=== PATIENT | male | born 1980 | race Caucasian/White ===

== ENCOUNTER 2020-02-19 22:51 | Emergency (ER) | payer SELFPAY ==
[~2020-02-19] VITALS: Ht 180.3 cm; Wt 99.8 kg
--- OUTSIDE RECORDS SUMMARY | 2020-02-19 22:53 | XMS REPORT | Clinical Summary ---
Author Author [facility] Organization [facility] Address Unknown Phone Unavailable Care Team Providers Care Podiatry Doctor Name Role Phone Asked, No Pcp PCP Unavailable Allergies No Known Allergies Medications End Date Status Medication Sig Dispensed Refills Start Date Active acetaminophen (TYLENOL) Take 2 1 Bottle 0 325 MG tablet tablets (650 9 mg total) by mouth every 4 (four) hours as needed for moderate pain for up to 30 doses. 06/03/2019 acetaminophen-codeine Take 1-2 20 tablet 0 05/12 (TYLENOL WITH CODEINE #3) tablets by 9 300-30 mg per mouth every 6 tabletIndications: acute (six) hours pain as needed for moderate pain for up to 5 days .Acute Pain. 06/01/2019 ondansetron ODT (ZOFRAN Take 1 tablet 12 tablet 0 ODT) 8 MG disintegrating (8 mg total) 9 tablet by mouth every 8 (eight) hours as needed for nausea or vomiting for up to 3 days. Active Problems Problem Noted Date Ureteral stone with hydronephrosis 12/21/2018 Encounters Care Team Description Date Type Specialty Keaton, Adam Wright Jr., MD Flank pain (Primary Dx); Ureterolithiasis; Chest pain, unspecified type 05/29/2019 Emergency Emergency Medicine after 02/18/2019 Social History Date Tobacco Use Types Packs/Day Years Used Current Every Day Smoker Cigarettes 0.25 Smokeless Tobacco: Never Used Drinks/Week oz/Week Comments Alcohol Use Quit in 2003 No Sex Assigned at Date Recorded Not on file Industry Job Start Date Occupation Not on file Not on file Not on file Travel End Travel History Travel Start No recent travel history available. Last Filed Vital Signs Reading Time Taken Comments Vital Sign 130/88 05/29/2019 7:17 PM CDT Blood Pressure 58 05/29/2019 7:17 PM CDT Pulse 36.8 C (98.2 F) 05/29/2019 7:17 PM CDT Temperature 20 05/29/2019 7:17 PM CDT Respiratory Rate 99% 05/29/2019 7:17 PM CDT Oxygen Saturation - - Inhaled Oxygen Concentration 99.8 kg (220 lb) 05/29/2019 2:30 PM CDT Weight 180.3 cm (5' 11") 05/29/2019 2:30 PM CDT Height 30.68 05/29/2019 2:30 PM CDT Body Mass Index Plan of Treatment Health Maintenance Due Date Last Done Comments INFLUENZA VACCINE 04/11/2020 Procedures Comments Procedure Name Priority Date/Time Associated Diag nosis URINALYSIS SCREEN AND Routine 05/29/2019 MICROSCOPY, WITH REFLEX 6:14 PM CDT TO CULTURE URINE CULTURE Routine 05/29/2019 6:14 PM CDT TROPONIN Timed 05/29/2019 5:20 PM CDT ESTIMATED GFR STAT 05/29/2019 3:35 PM CDT TROPONIN STAT 05/29/2019 3:35 PM CDT LIPASE LEVEL STAT 05/29/2019 3:35 PM CDT PARTIAL THROMBOPLASTIN STAT 05/29/2019 TIME (PTT) 3:35 PM CDT PROTHROMBIN TIME WITH INR STAT 05/29/2019 3:35 PM CDT HC COMPLETE BLD COUNT STAT 05/29/2019 W/AUTO DIFF 3:35 PM CDT COMPREHENSIVE METABOLIC STAT 05/29/2019 PANEL 3:[address] RENAL STONE PROTOCOL STAT 05/29/2019 3:23 PM CDT ECG ED PRELIMINARY Routine 05/29/2019 INTERPRETATION 2:36 PM CDT ECG 12-LEAD STAT 05/29/2019 2:22 PM CDT after 02/18/2019 Results * Urinalysis screen and microscopy, with reflex to culture (05/29/2019 6:14 PM CDT) Specimen site Clean catch [facility] Color, UA Straw [facility] Appearance, UA Clear [facility] Specific 1.014 1.001 - 1.035 [facility] gravity, UA [facility] pH, UA 6.0 5.0 - 8.5 [facility] Protein, UA Negative Negative [facility] Glucose, UA Negative Negative [facility] Ketones, UA Negative Negative [facility] Bilirubin, UA Negative Negative [facility] Blood, UA Small (A) Negative [facility] Nitrite, UA Negative Negative [facility] Urobilinogen, Negative <2.0 [facility] Leukocyte Negative Negative [facility] esterase, [facility] WBC, UA 1 0 - 1 /HPF [facility] RBC, UA 5 (A) 0 - 5 /HPF [facility] Bacteria, UA None seen None seen [facility] Yeast, UA None seen [facility] Yeast with None seen [facility] Specimen Urine Performing Organization Address City/[facility] Ph one Number [facility] DEPARTMENT OF [facility] [place] [address] PATHOLOGY AND GENOMIC MEDICINE [address] * Urine culture (05/29/2019 6:14 PM CDT) Urine culture SEE COMMENTComment: [facility] Bacteriuria screen negative. [facility] Specimen Urine Performing Organization Address City/[facility] Ph one Number [facility] DEPARTMENT OF [address] [place] [address] [place] [address] PATHOLOGY AND GENOMIC MEDICINE [address] [place] [address] HOSPITAL * Troponin (05/29/2019 5:20 PM CDT) Only the most recent of 2 results within the time period is included. Troponin <0.006 0.000 - 0.040 ng/mL [facility] Comment: ZOROASTRIANISM [facility] changed methodology effective: HOSPITAL 01/15/2019 at 10:00 am The new method has a 99th percentile cutoff of 0.040 ng/mL Specimen Plasma specimen Performing Organization Address City/[facility] Ph one Number [facility] [place] [address] [place] [address] PATHOLOGY AND GENOMIC MEDICINE [address] * Estimated GFR (05/29/2019 3:35 PM CDT) [facility] Estimated GFR 85 mL/min/1.73 m2 [facility] Comment: [facility]OASTRIANISM [facility] Interpretation HOSPITAL G1 >=90 Normal or high G2 60-89 Mildly decreased G3a 45-59 Mildly to moderately decreased G3b 30-44 Moderately to severely decreased G4 15-29 Severely decreased G5 <15 Kidney failure The eGFR was calculated using the Chronic Kidney Disease Epidemiology Collaboration (CKD-EPI) equation. Interpretation is based on recommendations of the National Kidney Foundation-Kidney Disease Outcomes Quality Initiative (NKF-KDOQI) published in 2014. Specimen Plasma specimen Performing Organization Address [facility] Ph one Number [facility] [place] [address] [place] [address] [place] [address] PATHOLOGY AND [facility] MEDICINE [address] * Partial thromboplastin time, activated (05/29/2019 3:35 PM CDT) [facility] PTT 37.1 (H) 23.0 - 36.0 sec [facility] Comment: ZOROASTRIANISM PTT therapeutic range for [facility] unfractionated heparin is HOSPITAL 61.0-112.0 seconds which corresponds to Anti-Xa 0.3-0.7 U/ml. Specimen Blood Performing Organization Address City/[facility] Ph one Number [facility] DEPARTMENT OF [address] [facility] [place] [address] PATHOLOGY AND GENOMIC MEDICINE [facility] [address] * Prothrombin time with INR (05/29/2019 3:35 PM CDT) Prothrombin 12.7 11.5 - 14.5 sec [facility] INR 0.98 [facility] Comment: ZOROASTRIANISM [facility] patients [facility] therapy, reference ranges HOSPITAL below: Indication: INR Value Treatment of Venous Thrombosis, 2.0-3.0 pulmonary emboli, or prophylaxis of a venous thrombosis, or systemic emboli. High dose, high risk patients 3.0-4.5 with mechanical valves. NOTE: INR values over 3.0 are sometimes associated with gastrointestinal hemorrhage, especially values over 4.0. Specimen Blood Performing Organization Address City/State/Zipcode Ph one Number [facility] DEPARTMENT OF [address] [place] [address] PATHOLOGY AND GENOMIC MEDICINE [facility] [address] * CBC with platelet and differential (05/29/2019 3:35 PM CDT) WBC 6.0 4.2 - 11.0 k/uL [facility] RBC 4.59 4.04 - 5.86 m/uL [facility] HGB 13.4 13.0 - 17.3 g/dL [facility] HCT 40.5 34.0 - 45.0 % [facility] MCV 88.2 80.0 - 98.0 fL [facility] MCH 29.2 27.0 - 34.0 pg [facility] MCHC 33.1 31.5 - 36.5 g/dL [facility] RDW - SD 43.8 37.0 - 51.0 fL [facility] MPV 9.9 7.4 - 10.4 fL [facility] Platelet count 301 150 - 400 k/uL [facility] Nucleated RBC 0.00 /100 WBC [facility] Neutrophils 56.3 36.0 - 66.0 % [facility] Lymphocytes 29.2 24.0 - 44.0 % [facility] Monocytes 9.4 (H) 0.0 - 6.0 % [facility] Eosinophils 3.4 0.0 - 6.0 % [facility] Basophils 1.0 0.0 - 1.2 % [facility] Immature 0.7 0.0 - 1.0 % [facility] granulocytes [facility] Specimen Blood Performing Organization Address City/State[facility] Ph one Number [facility] DEPARTMENT OF [address] [place] [address] PATHOLOGY AND GENOMIC MEDICINE [facility] [address] * Lipase level (05/29/2019 3:35 PM CDT) Pathologist [facility] Lipase 52 13 - 60 U/L [facility] Specimen Plasma specimen Performing Organization Address City/State[facility] Ph one Number [facility] DEPARTMENT OF [address] [place] [address] PATHOLOGY AND GENOMIC MEDICINE [facility] [address] * Comprehensive metabolic panel (05/29/2019 3:35 PM CDT) [facility] Sodium 142 135 - 150 mEq/L [facility] Potassium 3.8 3.5 - 5.0 mEq/L [facility] Chloride 106 98 - 112 mEq/L [facility] CO2 24 24 - 31 mmol/L [facility] Anion gap 12@ANIO 7 - 15 mEq/L [facility] BUN 20 (H) 7 - 18 mg/dL [facility] Creatinine 1.10 0.70 - 1.20 mg/dL [facility] Glucose 87 65 - 100 mg/dL [facility] Calcium 9.6 8.3 - 10.2 mg/dL [facility] Protein 7.4 6.3 - 8.3 g/dL [facility] Albumin 4.1 3.5 - 5.0 g/dL [facility] A/G ratio 1.2 0.7 - 3.8 [facility] Alkaline 136 (H) 0 - 129 U/L [facility] phosphatase [facility] AST 19 10 - 50 U/L [facility] ALT 26 5 - 50 U/L [facility] Total bilirubin <0.3 0.2 - 1.2 mg/dL [facility] Specimen Plasma specimen Performing Organization Address City/State/Zipcode Ph one Number [facility] DEPARTMENT OF [address] [place] [address] PATHOLOGY AND GENOMIC MEDICINE [facility] [address] * CT Renal Stone Protocol (05/29/2019 3:23 PM CDT) Specimen Narrative Performed At EXAMINATION: CT RENAL STONE PROTOCOL RADIANT CLINICAL HISTORY: Flank pain stone disease suspected, LLQ pain and L flank pain TECHNIQUE: Multiple axial images of the abdomen were obtained without intravenous contrast with thin sections per renal stone protocol. Sagittal and coronal computerized reformatted images were also obtained. All CT images were acquired using radiation dose lowering technique with automated exposure control and / or iterative reconstruction. COMPARISON: CT abdomen pelvis 12/22/19 19 IMPRESSION: ABDOMEN Evaluation of solid abdominal organs is limited without IV contrast as this examination was tailored for evaluation of urinary tract calculi. 1.Mild left hydroureteronephrosis and m inimal stranding, less pronounced than prior. No obstructing stone is identifi ed. Bilateral nonobstructive nephrolithiasis is present, and the fin dings likely represent a recently passed stone, though ascending bladder infection is another possibilit y (felt less likely). No obstructive uropathy on the right. 2.Calcified splenic granulomata. 3.No other incidental findings are dete cted PELVIS 1.Circumaortic left renal vein anatomic variant. 2.Mild midline abdominal wall diastasis . 3.No free fluid or definite lymphadenop athy detected in the abdomen or pelvis on this limited noncontrast study. 4.Urinary bladder collapsed otherwise g rossly unremarkable. Prostate gland seminal vesicles grossly unremarkable. 5.Bowel loops grossly unremarkable with out enteric contrast. Bone island in the lower thoracic spine. Visualized bones show no suspicious lesion. SUMMARY: Mild left hydroureteronephrosis likely due to a recently passed stone. Incidental findings as above. [id number] Procedure Note Hm Interface, Radiology Results Incoming - 05/29/2019 3:40 PM CDT EXAMINATION: CT RENAL STONE PROTOCOL CLINICAL HISTORY: Flank pain stone disease suspected, LLQ pain and L flank pain TECHNIQUE: Multiple axial images of the abdomen were obtained without intravenous contrast with thin sections per renal stone protocol. Sagittal and coronal computerized reformatted images were also obtained. All CT images were acquired using radiation dose lowering technique with automated exposure control and / or iterative reconstruction. COMPARISON: CT abdomen pelvis 12/21/2018 IMPRESSION: ABDOMEN Evaluation of solid abdominal organs is limited without IV contrast as this examination was tailored for evaluation of urinary tract calculi. 1.Mild left hydroureteronephrosis and mi nimal stranding, less pronounced than prior. No obstructing stone is identified. Bilateral nonobstructive nephrolithiasis is present, and the findings likely represent a recently passed stone, though ascending bladder infection is another possibility (felt less likely). No obstructive uropathy on the right. 2.Calcified splenic granulomata. 3.No other incidental findings are detec bernabe PELVIS 1.Circumaortic left renal vein anatomic variant. 2.Mild midline abdominal wall diastasis. 3.No free fluid or definite lymphadenopa thy detected in the abdomen or pelvis on this limited noncontrast study. 4.Urinary bladder collapsed otherwise gr ossly unremarkable. Prostate gland seminal vesicles grossly unremarkable. 5.Bowel loops grossly unremarkable witho ut enteric contrast. Bone island in the lower thoracic spine. Visualized bones show no suspicious lesion. SUMMARY: Mild left hydroureteronephrosis likely due to a recently passed stone. Incidental findings as above. [id number] Performing Organization Address City/State/[facility] Ph one Number [facility] [address] [place] [address] * ECG ED Preliminary Interpretation - Not an Order (05/29/2019 2:36 PM CDT) Narrative Performed At Adam Pugh Jr., MD 2018 8:44 AM ECG ED Preliminary Interpretation - Not an Order Performed by: Adam Pugh Jr., MD Authorized by: Adam Pugh Jr., MD ECG reviewed by ED Physician in the abs ence of a academic support specialist: yes Interpretation: Interpretation: normal Quality: Tracing quality: Limited by artifac t Rate: ECG rate: 70 ECG rate assessment: normal Rhythm: Rhythm: sinus rhythm QRS: QRS axis: Normal QRS intervals: Normal ST segments: ST segments: Normal * ECG 12 lead (05/29/2019 2:22 PM CDT) Ventricular 70 [facility] rate Atrial rate 70 [facility] DE interval 118 [facility] QRSD interval 82 [facility] QT interval 424 [facility] QTC interval 457 [facility] P axis 1 25 [facility] QRS axis 1 56 [facility] T wave axis 44 [facility] EKG impression Normal sinus rhythm-Normal [facility] ECG-In automated comparison with ECG of 04-DEC-2011 17:15,-Nonspecific T wave abnormality no longer evident in Anterior leads- Specimen Narrative Performed At This result has an attachment that is n ot available. 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
--- OUTSIDE RECORDS SUMMARY | 2020-02-19 22:53 | XMS REPORT | Continuity of Care Document ---
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 Name Role Phone [employer] Unavailable Un available Problems Problem Status Onset Date Classification Date Reported Comments Source Calculus of ureter 12/19/2018 12/22/2018 [facility] Left lower quadrant pain 12/19/2018 12/22/2018 [facility] Unspecified abdominal pain 12/19/2018 12/22/2018 [facility] FLANK PAIN Active 12/19/2018 [facility] ABD PAIN Active 12/18/2018 [facility] Unspecified convulsions 01/24/2017 01/27/2017 [facility] SEIZURE Active 01/24/2017 [facility] Seizure (finding) Active Problem 12/22/2018 [facility] Medications Medication Details Route Status Patient Instructions Ordering Provider Order Date Source Morphine Notes: (Same as:MORPh ine Sulfate) Inactive 12/19/2018 [facility] NS (Bolus) IV 1,000 mL, 1,000 ml/hr, Infuse Over: 1 hr, Route: IV, 1,000, Drug form: INJ, ONCE, Priority: STAT, Dosing Weight 100.909 kg, Start date: 12/19/18 8:37:00 CDT, Stop date: 12/19/18 8:37:00 CDT Inactive 12/19/2018 [facility] Morphine Notes: (Same as:MORPh ine Sulfate) Inactive 12/19/2018 [facility] Zofran Notes: (Same as: Zofran ) MEDICATION WASTE Product Size: 4 mg Product Wasted: ___ mg Inactive 12/19/2018 [facility] Ibuprofen Notes: (Same as: Mot rin) "Do Not Crush" Take with food. Inactive 12/19/2018 [facility] Acetaminophen 325 MG / Hydrocodone Kavya trate 5 MG Oral Tablet [Yulee 5/325] Notes: (Same as: Yulee 325/5) Do not ex ceed 4gm/day of acetaminophen. Inactive 12/19/2018 [facility] Ondansetron 4 MG Disintegrating Tablet [Zofran] 4 mg = 1 tab, PO, Q8H, PRN Nausea and Vomiting, Dissolve tab under tongue, # 30 tab, 0 Refill(s) Active 12/19/2018 [facility] Tamsulosin hydrochloride 0.4 MG Oral Capsule [Flomax] 0.4 mg = 1 cap, PO, Daily, # 30 cap, 0 Refill(s) Active 12/19/2018 [facility] Acetaminophen 300 MG / Codeine Phosphate 30 MG Oral Tablet [Tylenol with Codeine #3] 1 tab, PO, Q6H, PRN Pain, X 10 day, # 30 tab, 0 Refill(s) Active 12/19/2018 [facility] Acetaminophen 325 MG / Hydrocodone Kavya trate 10 MG Oral Tablet [Yulee 10/325] 1 tab, Route: PO, Drug Form: TAB, Dosing Weight 101.045, kg, ONCE, STAT, Start date: 12/18/18 22:43:00 CDT, Stop date: 12/18/18 22:43:00 CDT Inactive 12/19/2018 [facility] Sodium Chloride 0.9% (Bolus) IV 1,000 mL, 1,000 ml/hr, Infuse Over: 1 hr, Route: IV, ONCE, Priority: STAT, Dosing Weight 101.045 kg, Start date: 12/18/18 21:29:00 CDT, Stop date: 12/18/18 21:29:00 CDT Inactive 12/19/2018 [facility] Ketorolac 30 mg, Route: IVP, D rug form: INJ, ONCE, Dosing Weight 101.045, kg, Priority: STAT, Start date: 12/18/18 21:25:00 CDT, Stop date: 12/18/18 21:25:00 CDT Inactive 12/19/2018 [facility] Ondansetron Notes: (Same as: [place] l[place]) MEDICATION WASTE Product Size: 4 mg Product Wasted: ___ mg Inactive 12/19/2018 [facility] Morphine Notes: (Same as:MORPh ine Sulfate) Inactive 12/19/2018 [facility] Saline Flush 0.9% Notes: (Same as: BD Posiflush) No Longer Active 12/19/2018 [facility] Divalproex Sodium 250 MG Enteric Coated Tablet [Depakote] 250 mg = 1 tab, PO, TID, # 90 tab, 0 Refill(s) Active 01/25/2017 [facility] Naproxen 500 MG Oral Tablet [Naprosyn] 500 mg = 1 tab, PO, BID, PRN Pain, # 20 tab, 0 Refill(s) No Longer Active 01/25/2017 [facility] Keppra Notes: Same as Keppra Mix with 100 mL NS, LR or D5W MEDICATION WASTE Product Size: 500 mg Product Wasted: ___ mg Inactive 01/25/2017 [facility] Saline Flush 0.9% Notes: (Same as: BD Posiflush) No Longer Active 01/25/2017 [facility] Allergies, Adverse Reactions, Alerts No Known Medication Allergies Immunizations Immunization Date Given Site Status Last Updated Comments Source tetanus-diphtheria toxoids Right Deltoid completed [facility] Results Order Name Results Value Reference Range Date Interpretation Comments Source URINE AND STOOL UA Sq Epi None Seen (12/18/18 10:07 PM) Few 12/19/2018 [facility] URINE AND STOOL UA RBC 1 0 - 2 12/19/2018 [facility] URINE AND STOOL UA Blood Negative (12/18/18 10:07 PM) Negative 12/19/2018 [facility] URINE AND STOOL UA Leuk Est Negative (12/18/18 10:07 PM) Negative 12/19/2018 [facility] URINE AND STOOL UA Urobilinogen <=1.0 mg/dL 0.1 - 1.0 12/19/2018 [facility] URINE AND STOOL UA Nitrite Negative (12/18/18 10:07 PM) Negative 12/19/2018 [facility] URINE AND STOOL UA Bili Negative *NA* (12/18/18 10:07 PM) Negative 12/19/2018 [facility] URINE AND STOOL UA WBC <1 0 - 5 12/19/2018 [facility] URINE AND STOOL UA Ketones Negative *NA* (12/18/18 10:07 PM) Negative 12/19/2018 [facility] URINE AND STOOL UA Mucus Few /LPF None Seen /LPF 12/19/2018 [facility] URINE AND STOOL UA Protein Negative (12/18/18 10:07 PM) Negative 12/19/2018 [facility] URINE AND STOOL UA pH 8.0 5.0 - 8.0 12/19/2018 [facility] URINE AND STOOL UA Glucose Negative *NA* (12/18/18 10:07 PM) Negative 12/19/2018 [facility] URINE AND STOOL UA Color STRAW 12/19/2018 [facility] URINE AND STOOL UA Turbidity Clear (12/18/18 10:07 PM) Clear 12/19/2018 [facility] URINE AND STOOL UA Spec Grav 1.011 <=1.030 12/19/2018 [facility] CARDIAC ENZYMES Troponin-I <0.02 0.00 - 0.40 12/19/2018 [facility] CHEM PANEL Lipase Lvl 109 73 - 393 12/19/2018 [facility] CHEM PANEL eGFR 81 12/19/2018 Result Comment: The eGFR is calculated using the CKD-EPI formula. In most young, healthy individuals the eGFR will be >90 mL/min/1.73m2. The eGFR declines with age. An eGFR of 60-89 may be normal in some populations, particularly the elderly, for whom the CKD-EPI formula has not been extensively validated. Use of the eGFR is not recommended in the following populations:

Individuals with unstable creatinine concentrations, including patients and those with serious co-morbid conditions.

Patients with extremes in muscle mass or diet.

The data above are obtained from the National Kidney Disease Education Program (NKDEP) which additionally recommends that when the eGFR is used in patients with extremes of body mass index for purposes of drug dosing, the eGFR should be multiplied by the estimated BMI. [facility] CHEM PANEL AST 18 0 - 37 12/19/2018 [facility] CHEM PANEL Alk Phos 112 39 - 136 12/19/2018 [facility] CHEM PANEL ALT 56 0 - 65 12/19/2018 [facility] CHEM PANEL Albumin Lvl 3.6 3.5 - 5.0 12/19/2018 [facility] CHEM PANEL Chloride Lvl 103 95 - 109 12/19/2018 [facility] CHEM PANEL Total Protein 6.9 6.4 - 8.4 12/19/2018 [facility] CHEM PANEL Calcium Lvl 8.8 8.5 - 10.5 12/19/2018 [facility] CHEM PANEL CO2 25 24 - 32 12/19/2018 [facility] CHEM PANEL Bili Total 0.2 0.2 - 1.3 12/19/2018 [facility] CHEM PANEL Glucose Lvl 151 70 - 99 12/19/2018 [facility] CHEM PANEL Potassium Lvl 4.1 3.5 - 5.1 12/19/2018 [facility] CHEM PANEL Sodium Lvl 134 135 - 145 12/19/2018 [facility] CHEM PANEL Creatinine Lvl 1.15 0.50 - 1.40 12/19/2018 [facility] CHEM PANEL BUN 17 7 - 22 12/19/2018 [facility] CHEM PANEL AGAP 10.1 10.0 - 20.0 12/19/2018 [facility] CHEM PANEL A/G Ratio 1.1 0.7 - 1.6 12/19/2018 [facility] CHEM PANEL B/C Ratio 15 6 - 25 12/19/2018 [facility] CHEM PANEL Globulin 3.3 2.7 - 4.2 12/19/2018 [facility] HEMATOLOGY Hct 40.7 42.0 - 54.0 12/19/2018 [facility] HEMATOLOGY Hgb 13.8 14.0 - 18.0 12/19/2018 [facility] HEMATOLOGY WBC 7.5 3.7 - 10.4 12/19/2018 [facility] HEMATOLOGY RBC 4.63 4.70 - 6.10 12/19/2018 [facility] HEMATOLOGY RDW 14.2 11.5 - 14.5 12/19/2018 [facility] HEMATOLOGY Platelet 287 133 - 450 12/19/2018 [facility] HEMATOLOGY MPV 8.1 7.4 - 10.4 12/19/2018 [facility] HEMATOLOGY MCV 87.9 80.0 - 94.0 12/19/2018 [facility] HEMATOLOGY MCH 29.9 27.0 - 31.0 12/19/2018 [facility] HEMATOLOGY MCHC 34.0 32.0 - 36.0 12/19/2018 [facility] HEMATOLOGY Segs 59.7 45.0 - 75.0 12/19/2018 [facility] HEMATOLOGY Lymphocytes 28.5 20.0 - 40.0 12/19/2018 [facility] HEMATOLOGY Monocytes 7.6 2.0 - 12.0 12/19/2018 [facility] HEMATOLOGY Eosinophils 2.8 0.0 - 4.0 12/19/2018 [facility] HEMATOLOGY Monocytes # 0.6 0.0 - 0.8 12/19/2018 [facility] HEMATOLOGY Eosinophils # 0.2 0.0 - 0.5 12/19/2018 [facility] HEMATOLOGY Lymphocytes # 2.1 1.0 - 5.5 12/19/2018 [facility] HEMATOLOGY Basophils # 0.1 0.0 - 0.2 12/19/2018 [facility] HEMATOLOGY Basophils 1.4 0.0 - 1.0 12/19/2018 [facility] HEMATOLOGY Neutrophils # 4.5 1.5 - 8.1 12/19/2018 [facility] URINE AND STOOL UA Urobilinogen <=1.0 mg/dL 0.1 - 1.0 01/25/[address] [facility] [address] URINE AND STOOL UA WBC 2 0 - 5 01/25/2017 [facility] URINE AND STOOL UA RBC 4 0 - 2 01/25/2017 [facility] URINE AND STOOL UA Ketones Negative mg/dL Negative mg/dL 01/25/[address] [facility] [address] URINE AND STOOL UA Nitrite Negative (01/24/17 10:35 PM) Negative 01/25/2017 [facility] URINE AND STOOL UA Bili Negative *NA* (01/24/17 10:35 PM) Negative 01/25/2017 [facility] URINE AND STOOL UA Color Light Yellow *NA* (01/24/17 10:35 PM) Yellow 01/25/2017 [facility] URINE AND STOOL UA pH 5.0 5.0 - 8.0 01/25/2017 [facility] URINE AND STOOL UA Turbidity Clear (01/24/17 10:35 PM) Clear 01/25/2017 [facility] URINE AND STOOL UA Protein Negative mg/dL Negative mg/dL 01/25/2017 [facility] URINE AND STOOL UA Spec Grav 1.020 <=1.030 01/25/2017 [facility] URINE AND STOOL UA Leuk Est Negative (01/24/17 10:35 PM) Negative 01/25/2017 [facility] URINE AND STOOL UA Mucus Few /LPF None Seen /LPF 01/25/2017 [facility] URINE AND STOOL UA Sq Epi None Seen 01/25/2017 [facility] URINE AND STOOL UA Glucose Negative mg/dL Negative mg/dL 01/25/2017 [facility] URINE AND STOOL UA Blood Negative (01/24/17 10:35 PM) Negative 01/25/2017 [facility] CARDIAC ENZYMES Troponin-I <0.02 0.00 - 0.40 01/25/2017 [facility] CARDIAC ENZYMES CK MB 1.0 0.5 - 3.6 01/25/2017 [facility] CHEM PANEL A/G Ratio 1.2 0.7 - 1.6 01/25/2017 [facility] CHEM PANEL AGAP 12.6 10.0 - 20.0 01/25/2017 [facility] CHEM PANEL B/C Ratio 19 6 - 25 01/25/2017 [facility] CHEM PANEL Globulin 3.0 2.7 - 4.2 01/25/2017 [facility] CHEM PANEL eGFR 94 01/25/2017 Result Comment: The eGFR is calculated using the CKD-EPI formula. In most young, healthy individuals the eGFR will be >90 mL/min/1.73m2. The eGFR declines with age. An eGFR of 60-89 may be normal in some populations, particularly the elderly, for whom the CKD-EPI formula has not been extensively validated. Use of the eGFR is not recommended in the following populations:

Individuals with unstable creatinine concentrations, including patients and those with serious co-morbid conditions.

Patients with extremes in muscle mass or diet.

The data above are obtained from the National Kidney Disease Education Program (NKDEP) which additionally recommends that when the eGFR is used in patients with extremes of body mass index for purposes of drug dosing, the eGFR should be multiplied by the estimated BMI. [facility] CHEM PANEL Total Protein 6.7 6.4 - 8.4 01/25/2017 [facility] CHEM PANEL Calcium Lvl 8.8 8.5 - 10.5 01/25/2017 [facility] CHEM PANEL CO2 23 24 - 32 01/25/2017 [facility] CHEM PANEL Chloride Lvl 109 95 - 109 01/25/2017 [facility] CHEM PANEL Albumin Lvl 3.7 3.5 - 5.0 01/25/2017 [facility] CHEM PANEL Sodium Lvl 141 135 - 145 01/25/2017 [facility] CHEM PANEL Creatinine Lvl 1.03 0.50 - 1.40 01/25/2017 [facility] CHEM PANEL BUN 20 7 - 22 01/25/2017 [facility] CHEM PANEL Glucose Lvl 103 70 - 99 01/25/2017 [facility] CHEM PANEL Potassium Lvl 3.6 3.5 - 5.1 01/25/2017 [facility] CHEM PANEL Alk Phos 75 39 - 136 01/25/2017 [facility] CHEM PANEL AST 20 0 - 37 01/25/2017 [facility] CHEM PANEL ALT 31 0 - 65 01/25/2017 [facility] CHEM PANEL Bili Total 0.1 0.2 - 1.3 01/25/2017 [facility] HEMATOLOGY Lymphocytes # 2.0 1.0 - 5.5 01/25/2017 [facility] HEMATOLOGY Monocytes # 0.5 0.0 - 0.8 01/25/2017 [facility] HEMATOLOGY Basophils # 0.1 0.0 - 0.2 01/25/2017 [facility] HEMATOLOGY Eosinophils # 0.2 0.0 - 0.5 01/25/2017 [facility] HEMATOLOGY Lymphocytes 30.9 20.0 - 40.0 01/25/2017 [facility] HEMATOLOGY Monocytes 7.6 2.0 - 12.0 01/25/2017 [facility] HEMATOLOGY Basophils 0.8 0.0 - 1.0 01/25/2017 [facility] Segs-Bands # 3.7 1.5 - 8.1 01/25/2017 [facility] Eosinophils 3.8 0.0 - 4.0 01/25/2017 [facility] Segs 56.9 45.0 - 75.0 01/25/2017 [facility] PTT 33.1 22.9 - 35.8 01/25/2017 [facility] MPV 9.0 7.4 - 10.4 01/25/2017 [facility] Platelet 249 133 - 450 01/25/2017 [facility] RDW 14.3 11.5 - 14.5 01/25/2017 [facility] WBC 6.4 3.7 - 10.4 01/25/2017 [facility] Hgb 12.4 14.0 - 18.0 01/25/2017 [facility] RBC 4.18 4.70 - 6.10 01/25/2017 [facility] MCH 29.6 27.0 - 31.0 01/25/2017 [facility] MCHC 34.6 32.0 - 36.0 01/25/2017 [facility] MCV 85.4 80.0 - 94.0 01/25/2017 [facility] Hct 35.7 42.0 - 54.0 01/25/2017 [facility] Pathology Reports No Data Provided for This Section Diagnostic Reports Report Value Date Source Renal Stone CT Clinical Indica tion: - left flank pain sudden onset Comparison: None TECHNIQUE: Noncontrasted helical imaging was performed from above the diaphragms through the symphysis as a renal stone protocol. No reformations are available. IV CONTRAST: No IV contrast was administered. GI CONTRAST: No oral contrast was administered. DLP: 794 mGy-cm FINDINGS: LOWER CHEST: The lung bases are clear. LIVER: There are no gross masses or intrahepatic biliary ductal dilatation noted. BILIARY TREE: The common bile duct is normal in caliber without evidence of filling defects. GALLBLADDER: The gallbladder is unremarkable, there is no evidence of cholelithiasis or cholecystitis. PANCREAS: The pancreas is unremarkable. The pancreatic duct is normal in caliber. SPLEEN: The spleen is normal in size and there are no parenchymal abnormalities. ADRENALS: The right adrenal gland is unremarkable. The left adrenal gland is unremarkable. KIDNEYS: There are punctate nonobstructing stones in bilateral renal collecting systems. The left kidney is hydronephrotic with perinephric fat stranding. The left ureter is dilated for its entire length to the bladder, where it is obstructed by a 3 mm stone at the ureterovesicular junction. There is no evidence of right-sided hydronephrosis or hydroureter and no right ureteral calculi are identified. No renal mass is identified. BOWEL: The visualized portion of the esophagus is unremarkable. The stomach is unremarkable. The small bowel is normal in caliber and there is no evidence of masses or obstruction. The colon is normal in caliber. There are no colonic masses. There is no evidence of diverticulosis or diverticulitis. APPENDIX: The appendix is not definitely seen but there is no CT evidence to suggest appendicitis. PELVIS: There are no pelvic mass. The urinary bladder is normal. The prostate and seminal vesicles are unremarkable. PERITONEUM: There is no evidence for free intraperitoneal fluid or air. LYMPH NODES: There is no evidence of mesenteric, retroperitoneal, or inguinal lymphadenopathy. VASCULATURE: The abdominal aorta is normal in caliber. MUSCULOSKELETAL: The visualized bony skeleton is unremarkable. IMPRESSION: 1. 3 mm stone is obstructing the distal left ureter at the ureterovesicular junction. 2. Additional punctate nonobstructing s tones are seen in bilateral renal collecting systems. SL: 82 12/18/2018 [facility] Brain wo contrast CT Clinical Indication: Seizure today multiple times.; Comparison: 08/11/2009 TECHNIQUE: CT images were obtained from the foramen magnum to the vertex without the use of intravenous contrast on a multidetector CT. Coronal and sagittal reconstructions were obtained. CT radiation dose DLP: 1304.48 mGy-cm FINDINGS: BRAIN PARENCHYMA: There are normal lopez-white interfaces, sulci and gyri. There are no focal mass lesions on this noncontrast head CT. There is no mass effect, midline shift or edema. There is extra-axial prominence involving the right middle cranial fossa which is unchanged when compared with the previous exam. There are no intra-axial fluid collections, intraventricular or intraparenchymal hemorrhage. The pineal, sellar, brainstem, cerebellum and skull base regions appear unremarkable. VENTRICLES: The lateral ventricles, third and fourth ventricles appear unremarkable. The basilar cisterns are normal. ORBITS, MASTOIDS AND PARANASAL SINUSES: The visualized orbits and paranasal sinuses are unremarkable. The mastoid air cells are clear. SKULL: There are no osseous abnormalities. If there is further concern for intracranial pathology or acute stroke, MRI of the brain may be performed for complete assessment. IMPRESSION: Unremarkable noncontrast head CT with no mass, hemorrhage or subacute stroke. SL: [id number] 01/24/2017 [facility] Consultation Notes No Data Provided for This Section Discharge Summaries No Data Provided for This Section History and Physicals No Data Provided for This Section Vital Signs Vital Sign Value Date Comments Source Systolic (mm Hg) 122 12/19/2018 [facility] Diastolic (mm Hg) 74 12/19/2018 [facility] Respitory Rate 22 12/19/2018 [facility] Respitory Rate 22 12/19/2018 [facility] Systolic (mm Hg) 133 12/19/2018 [facility] Diastolic (mm Hg) 86 12/19/2018 [facility] Temperature Oral (F) 98.1 F 12/19/2018 [facility] BMI Calculated 31.03 12/19/2018 [facility] Height 180.34 cm 12/19/2018 [facility] Heart Rate 78 12/19/2018 [facility] Respitory Rate 20 12/19/2018 [facility] Weight 100.909 12/19/2018 [facility] Systolic (mm Hg) 137 12/19/2018 [facility] Diastolic (mm Hg) 99 12/19/2018 [facility] Heart Rate 71 12/19/2018 [facility] Systolic (mm Hg) 139 12/19/2018 [facility] Diastolic (mm Hg) 80 12/19/2018 [facility] Respitory Rate 16 12/19/2018 [facility] Systolic (mm Hg) 159 12/19/2018 [facility] Diastolic (mm Hg) 71 12/19/2018 [facility] Heart Rate 82 12/19/2018 [facility] Respitory Rate 17 12/19/2018 [facility] Respitory Rate 17 12/19/2018 [facility] Systolic (mm Hg) 142 12/19/2018 [facility] Diastolic (mm Hg) 89 12/19/2018 [facility] Heart Rate 83 12/19/2018 [facility] Height 180.34 cm 12/19/2018 [facility] Weight 101.045 12/19/2018 [facility] BMI Calculated 31.07 12/19/2018 [facility] Temperature Oral (F) 97.3 F 12/19/2018 [facility] Heart Rate 78 01/25/2017 [facility] Systolic (mm Hg) 101 01/25/2017 [facility] Diastolic (mm Hg) 55 01/25/2017 [facility] Respitory Rate 18 01/25/2017 [facility] Systolic (mm Hg) 113 01/25/2017 [facility] Diastolic (mm Hg) 68 01/25/2017 [facility] Respitory Rate 18 01/25/2017 [facility] Heart Rate 75 01/25/2017 [facility] Respitory Rate 18 01/25/2017 [facility] Systolic (mm Hg) 116 01/25/2017 [facility] Diastolic (mm Hg) 69 01/25/2017 [facility] Heart Rate 72 01/25/2017 [facility] BMI Calculated 30.75 01/25/2017 [facility] Weight 100 01/25/2017 [facility] Height 180.34 cm 01/25/2017 [facility] Temperature Oral (F) 98.9 F 01/25/2017 [facility] Encounters Location Location Details Encounter Type Encounter Number Reason For Visit Attending Provider ADM Date DC Date Status Source [facility] Emergency [id number] Teo Bell 01/25/2017 01/25/2017 [facility] Emergency [id number] Lazara Gilberto 12/19/2018 12/19/2018 [facility] Emergency [id number] Keyana Marivelyvon 12/19/2018 12/19/2018 [facility] Procedures No Data Provided for This Section Assessment and Plan No Data Provided for This Section Plan of Care No Data Provided for This Section Social History Social History Date Source Social History TypeResponse Smoking Status Current every day smoker; Type: Cigarettes; Lives with someone who smokes; Cigarette Smoking Last 365 Days Yes; Reg Smoking Cessation Counseling Yes entered on: 12/19/18 12/19/2018 [facility] Family History No Data Provided for This Section Advance Directives No Data Provided for This Section Functional Status No Data Provided for This Section
--- OUTSIDE RECORDS SUMMARY | 2020-02-19 22:53 | XMS REPORT | Summary of Care ---
Author Author [facility] Organization [facility] Address Unknown Phone Unavailable Encounter HANNAH Lott(AYO) [id number] Date(s): 01/24/17 - 01/24/17 [facility] [address] [place] [address]- Discharge Diagnosis: Generalized seizure Discharge Disposition: DC/TF TO COURT/LAW Attending Physician: Teo Bell MD Vital Signs 1 2 3 Most recent to oldest [Reference Range]: 180.34 cm (01/24/17 9:16 PM) Height 98.9 DegF (01/24/17 9:16 PM) Temperature Oral [96.4-99.1 DegF] 101/55 mmHg (01/24/17 11:58 PM) 113/68 mmHg (01/24/17 11:13 PM) 116/69 mmHg (01/24/17 10:42 PM) Blood Pressure [90-140/60-90 mmHg] 18 BRMIN (01/24/17 11:58 PM) 18 BRMIN (01/24/17 11:13 PM) 18 BRMIN (01/24/17 10:42 PM) Respiratory Rate [14-20 BRMIN] 78 bpm (01/24/17 11:58 PM) 75 bpm (01/24/17 11:13 PM) 72 bpm (01/24/17 10:42 PM) Peripheral Pulse Rate [60-100 bpm] 100 kg (01/24/17 9:16 PM) Weight 30.75 m2 (01/24/17 9:16 PM) Body Mass Index Problem List Condition Effective Dates Status Health Status Informan t Seizures(Confirmed) Active Allergies, Adverse Reactions, Alerts Substance Reaction Severity Status NKDA Active Medications Depakote 250 mg oral enteric coated tablet 250 mg = 1 tab, PO, TID, # 90 tab, 0 Refill(s) Start Date: 01/24/17 Status: Ordered Keppra + sodium chloride 0.9% 100 mL INJ (for IV set) 100 mL 1,000 mg, Route: IV, ONCE, Dosing Weight 100, kg, Start date: 01/24/17 22:02:00 CDT, Stop date: 01/24/17 22:02:00 CDT Notes: Same as KeppraMix with 100 mL NS, LR or D5W MEDICATION WASTE Prod uct Size: 500 mgProduct Wasted: ___ mg Start Date: 01/24/17 Stop Date: 01/24/17 Status: Completed Naprosyn 500 mg oral tablet 500 mg = 1 tab, PO, BID, PRN Pain, # 20 tab, 0 Refill(s) Start Date: 01/24/17 Stop Date: 01/25/17 Status: Completed Saline Flush 0.9% 10 mL, Route: IVP, Drug Form: INJ, Dosing Weight 100, kg, PRN, PRN Line Flush, S tart date: 01/24/17 21:50:00 CDT, Duration: 1 day, Stop date: 01/25/17 21:49:00 CDT Notes: (Same as: BD Posiflush) Start Date: 01/24/17 Stop Date: 01/25/17 Status: Discontinued Results ELECTROLYTES Most recent to 1 oldest [Reference Range]: Sodium Lvl [135-145 141 mEq/L mEq/L] (01/24/17 9:51 PM) Potassium Lvl 3.6 mEq/L [3.5-5.1 mEq/L] (01/24/17 9:51 PM) Chloride Lvl [95-109 109 mEq/L mEq/L] (01/24/17 9:51 PM) CO2 [24-32 mEq/L] 23 mEq/L *LOW* (01/24/17 9:51 PM) AGAP [10.0-20.0 12.6 mEq/L mEq/L] (01/24/17 9:51 PM) CHEM PANEL Most recent to 1 oldest [Reference Range]: Creatinine Lvl 1.03 mg/dL [0.50-1.40 mg/dL] (01/24/17 9:51 PM) eGFR 94 mL/min/1.73m2 1 *NA* (01/24/17 9:51 PM) BUN [7-22 mg/dL] 20 mg/dL (01/24/17 9:51 PM) B/C Ratio [6-25] 19 (01/24/17 9:51 PM) Glucose Lvl [70-99 103 mg/dL mg/dL] *HI* (01/24/17 9:51 PM) Total Protein 6.7 g/dL [6.4-8.4 g/dL] (01/24/17 9:51 PM) Albumin Lvl [3.5-5.0 3.7 g/dL g/dL] (01/24/17 9:51 PM) Globulin [2.7-4.2 3.0 g/dL g/dL] (01/24/17 9:51 PM) A/G Ratio [0.7-1.6] 1.2 (01/24/17 9:51 PM) Calcium Lvl 8.8 mg/dL [8.5-10.5 mg/dL] (01/24/17 9:51 PM) ALT [0-65 unit/L] 31 unit/L (01/24/17 9:51 PM) AST [0-37 unit/L] 20 unit/L (01/24/17 9:51 PM) Alk Phos [39-136 75 unit/L unit/L] (01/24/17 9:51 PM) Bili Total [0.2-1.3 0.1 mg/dL mg/dL] *LOW* (01/24/17 9:51 PM) 1Result Comment: The eGFR is calculated using the [...] from the National Kidney Disease Education Program ( NKDEP) which additionally recommends that when the eGFR is used in patients with extremes of body mass index for purposes of drug dosing, the eGFR should be mul tiplied by the estimated BMI. CARDIAC ENZYMES Most recent to 1 oldest [Reference Range]: CK MB [0.5-3.6 1.0 ng/mL ng/mL] (01/24/17 9:51 PM) Troponin-I <0.02 ng/mL [0.00-0.40 ng/mL] (01/24/17 9:51 PM) URINE AND STOOL Most recent to 1 oldest [Reference Range]: UA Turbidity [Clear] Clear (01/24/17 10:35 PM) UA Color [Yellow] Light Yellow *NA* (01/24/17 10:35 PM) UA pH [5.0-8.0] 5.0 (01/24/17 10:35 PM) UA Spec Grav 1.020 [<=1.030] (01/24/17 10:35 PM) UA Glucose [Negative Negative mg/dL mg/dL] *NA* (01/24/17 10:35 PM) UA Blood [Negative] Negative (01/24/17 10:35 PM) UA Ketones [Negative Negative mg/dL mg/dL] *NA* (01/24/17 10:35 PM) UA Protein [Negative Negative mg/dL mg/dL] (01/24/17 10:35 PM) UA Urobilinogen <=1.0 mg/dL [0.1-1.0 mg/dL] *NA* (01/24/17 10:35 PM) UA Bili [Negative] Negative *NA* (01/24/17 10:35 PM) UA Leuk Est Negative [Negative] (01/24/17 10:35 PM) UA Nitrite Negative [Negative] (01/24/17 10:35 PM) UA WBC [0-5 /HPF] 2 /HPF *NA* (01/24/17 10:35 PM) UA RBC [0-2 /HPF] 4 /HPF *NA* (01/24/17 10:35 PM) UA Sq Epi None Seen *NA* (01/24/17 10:35 PM) UA Mucus [None Seen Few /LPF /LPF] *NA* (01/24/17 10:35 PM) HEMATOLOGY Most recent to 1 oldest [Reference Range]: WBC [3.7-10.4 K/CMM] 6.4 K/CMM (01/24/17 9:51 PM) RBC [4.70-6.10 4.18 M/CMM M/CMM] *LOW* (01/24/17 9:51 PM) Hgb [14.0-18.0 g/dL] 12.4 g/dL *LOW* (01/24/17 9:51 PM) Hct [42.0-54.0 %] 35.7 % *LOW* (01/24/17 9:51 PM) MCV [80.0-94.0 fL] 85.4 fL (01/24/17 9:51 PM) MCH [27.0-31.0 pg] 29.6 pg (01/24/17 9:51 PM) MCHC [32.0-36.0 34.6 g/dL g/dL] (01/24/17 9:51 PM) RDW [11.5-14.5 %] 14.3 % (01/24/17 9:51 PM) Platelet [133-450 249 K/CMM K/CMM] (01/24/17 9:51 PM) MPV [7.4-10.4 fL] 9.0 fL (01/24/17 9:51 PM) Segs [45.0-75.0 %] 56.9 % (01/24/17 9:51 PM) Lymphocytes 30.9 % [20.0-40.0 %] (01/24/17 9:51 PM) Monocytes [2.0-12.0 7.6 % %] (01/24/17 9:51 PM) Eosinophils [0.0-4.0 3.8 % %] (01/24/17 9:51 PM) Basophils [0.0-1.0 0.8 % %] (01/24/17 9:51 PM) Segs-Bands # 3.7 K/CMM [1.5-8.1 K/CMM] (01/24/17 9:51 PM) Lymphocytes # 2.0 K/CMM [1.0-5.5 K/CMM] (01/24/17 9:51 PM) Monocytes # [0.0-0.8 0.5 K/CMM K/CMM] (01/24/17 9:51 PM) Eosinophils # 0.2 K/CMM [0.0-0.5 K/CMM] (01/24/17 9:51 PM) Basophils # [0.0-0.2 0.1 K/CMM K/CMM] (01/24/17 9:51 PM) PTT [22.9-35.8 33.1 seconds seconds] (01/24/17 9:51 PM) Immunizations Given and Recorded Vaccine Date Status Refusal Reason tetanus-diphtheria toxoids 02/04/10 Given Procedures No data available for this section Social History Social History Type Response Smoking Status Current every day smoker; T ype: Cigarettes; Lives with someone who smokes; Cigarette Smoking Last 365 Days Yes; Re g Smoking Cessation Counseling No Assessment and Plan No data available for this section
--- OUTSIDE RECORDS SUMMARY | 2020-02-19 22:54 | XMS REPORT | Summary of Care ---
Author Author [facility] Organization [facility] Address Unknown Phone Unavailable Encounter HQ Kaylie(FIN) [id number] Date(s): 12/19/18 - 12/19/18 [facility] [address] [place] [address]- Encounter Diagnosis Ureteral stone (Discharge Diagnosis) - 12/19/18 Abdominal pain, acute, left lower quadrant (Discharge Diagnosis) - 12/19/18 Left flank pain (Discharge Diagnosis) - 12/19/18 Discharge Disposition: Home or Self Care Attending Physician: Keyana Zohng MD Vital Signs 1 2 3 Most recent to oldest [Reference Range]: 180.34 cm (12/19/18 8:15 AM) Height 98.1 DegF (12/19/18 8:15 AM) Temperature Oral [96.4-99.1 DegF] 122/74 mmHg (12/19/18 10:00 AM) 133/86 mmHg (12/19/18 9:10 AM) 137/99 mmHg (12/19/18 8:15 AM) Blood Pressure [90-140/60-90 mmHg] 22 BRMIN *HI* (12/19/18 10:00 AM) 22 BRMIN *HI* (12/19/18 9:10 AM) 20 BRMIN (12/19/18 8:15 AM) Respiratory Rate [14-20 BRMIN] 78 bpm (12/19/18 8:15 AM) Peripheral Pulse Rate [60-100 bpm] 100.909 kg (12/19/18 8:15 AM) Weight 31.03 m2 (12/19/18 8:15 AM) Body Mass Index Problem List Condition Effective Dates Status Health Status Informan t Seizures(Confirmed) Active Allergies, Adverse Reactions, Alerts Substance Reaction Severity Status NKDA Active Medications ibuprofen 600 mg, 1 tab, Route: PO, Drug form: TAB, ONCE, Dosing Weight 100.909, kg, Prior ity: STAT, Start date: 12/19/18 8:37:00 CDT, Stop date: 12/19/18 8:37:00 CDT Notes: (Same as: Motrin)"Do Not Crush" Take with food. Start Date: 12/19/18 Stop Date: 12/19/18 Status: Completed morphine Sulfate 4 mg, 1 mL, Route: IVP, Drug form: SOLN, ONCE, Dosing Weight 100.909, kg, Priori ty: STAT, Start date: 12/19/18 10:56:00 CDT, Stop date: 12/19/18 10:56:00 CDT Notes: (Same as:MORPhine Sulfate) Start Date: 12/19/18 Stop Date: 12/19/18 Status: Discontinued morphine Sulfate 4 mg, 1 mL, Route: IVP, Drug form: SOLN, ONCE, Dosing Weight 100.909, kg, Priori ty: STAT, Start date: 12/19/18 8:37:00 CDT, Stop date: 12/19/18 8:37:00 CDT Notes: (Same as:MORPhine Sulfate) Start Date: 12/19/18 Stop Date: 12/19/18 Status: Completed Clearwater 5/325 oral tablet 1 tab, Route: PO, Drug Form: TAB, Dosing Weight 100.909, kg, ONCE, STAT, Start d ate: 12/19/18 8:37:00 CDT, Stop date: 12/19/18 8:37:00 CDT Notes: (Same as: Clearwater 325/5) Do not exceed 4gm/day of acetaminophen. Start Date: 12/19/18 Stop Date: 12/19/18 Status: Completed NS (Bolus) IV 1,000 mL, 1,000 ml/hr, Infuse Over: 1 hr, Route: IV, 1,000, Drug form: INJ, ONCE , Priority: STAT, Dosing Weight 100.909 kg, Start date: 12/19/18 8:37:00 CDT, St op date: 12/19/18 8:37:00 CDT Start Date: 12/19/18 Stop Date: 12/19/18 Status: Completed Zofran 4 mg, 2 mL, Route: IVP, Drug form: INJ, ONCE, Dosing Weight 100.909, kg, Priorit y: STAT, Start date: 12/19/18 8:37:00 CDT, Stop date: 12/19/18 8:37:00 CDT Notes: (Same as: Zofran) MEDICATION WASTE Product Size: 4 mgProduct Was bernabe: ___ mg Start Date: 12/19/18 Stop Date: 12/19/18 Status: Completed Results No data available for this section Immunizations Given and Recorded Vaccine Date Status Refusal Reason tetanus-diphtheria toxoids 02/04/10 Given Procedures No data available for this section Social History Social History Type Response Smoking Status Current every day smoker; T ype: Cigarettes; Lives with someone who smokes; Cigarette Smoking Last 365 Days Yes; Re g Smoking Cessation Counseling Yes entered on: 12/19/18 Assessment and Plan No data available for this section
--- OUTSIDE RECORDS SUMMARY | 2020-02-19 22:54 | XMS REPORT | Summary of Care ---
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 Role Phone Pcp, Patient Does Not Have A PCP [phone] Reason for Visit * Reason Comments Flank Pain * Auth/Cert Referred By Contact Referred To Contact Status Reason Specialty Diagnoses / Procedures [facility] Emergency [facility] [address] [place] [address] [place] [address] Emergency Medicine Encounter Details Care Team Description Date Type Department Dahlia High, VANGIE [id number] [place], [place] [id number] Bilateral nephrolithiasis (Primary Dx); Flank pain; LLQ pain; Epigastric pain 05/30/2019 [facility] [address] [place] [address] Allergies No Known Allergiesdocumented as of this encounter (statuses as of 05/30/2019) Medications End Date Status Medication Sig Dispensed Refills Start Date Active ketorolac 10 mg Take 1 tablet 20 tablet 0 05/30/20 1 tabletIndications: by mouth 9 Bilateral nephrolithiasis every 6 (six) hours as needed for Pain (scale 4-6). documented as of this encounter (statuses as of 05/30/2019) Active Problems No known active problemsdocumented as of this encounter (statuses as of 05/30/2019) Social History Date Tobacco Use Types Packs/Day Years Used Current Every Day Smoker Smokeless Tobacco: Never Used Drinks/Week oz/Week Comments Alcohol Use Not Currently Sex Assigned at Date Recorded Not on file Industry Job Start Date Occupation Not on file Not on file Not on file Travel End Travel History Travel Start No recent travel history available. documented as of this encounter Last Filed Vital Signs Reading Time Taken Comments Vital Sign 120/80 05/30/2019 4:57 PM CDT Blood Pressure 60 05/30/2019 4:57 PM CDT Pulse 36.6 C (97.8 F) 05/30/2019 4:57 PM CDT Temperature 14 05/30/2019 4:57 PM CDT Respiratory Rate 99% 05/30/2019 4:57 PM CDT Oxygen Saturation - - Inhaled Oxygen Concentration 105.3 kg (232 lb 1.6 oz) 05/30/2019 12:38 PM CDT Weight 180.3 cm (5' 11") 05/30/2019 12:38 PM CDT Height 32.37 05/30/2019 12:38 PM CDT Body Mass Index documented in this encounter Discharge Instructions * Instructions* Dahlia High REIMBURSEMENT DIRECTOR - 05/30/2019 Diagnosis: Nephrolithiasis Follow up with urology Prescription for Toradol sent to your [facility] pharmacy in [place] Recommend you not take medications not prescribed for you * Attachments The following attachments cannot be sent through Care Everywhere.* Kidney Stones,Preventing (Gabonese) * Kidney Stones, Understanding (Gabonese) * Kidney Stone, Undescended (No Symptoms) (Gabonese) documented in this encounter Plan of Treatment Health Maintenance Due Date Last Done Comments PNEUMOCOCCAL 0-64 YEARS 1987 COMBINED SERIES (1 of 1 - PPSV23) VARICELLA VACCINES (1 of 1994 2 - 13+ 2-dose series) DTaP,Tdap,and Td Vaccines 2000 (1 - Tdap) INFLUENZA VACCINE (#1) 2019 documented as of this encounter Procedures Comments Procedure Name Priority Date/Time Associated Diag nosis CBC WITH DIFFERENTIAL STAT 05/30/2019 LLQ pain 2:06 PM CDT Epigastric pain CBC WITH DIFF STAT 05/30/2019 LLQ pain 2:06 PM CDT Epigastric pain COMP. METABOLIC PANEL STAT 05/30/2019 LLQ pain (68136) 1:11 PM CDT Epigastric pain TROPONIN I STAT 05/30/2019 Epigastric pain 1:11 PM CDT LIPASE STAT 05/30/2019 Epigastric pain 1:11 PM CDT ADC / [facility] - DRUG SCREEN STAT 05/30/2019 LLQ pa in TRIAGE 1:03 PM CDT URINALYSIS STAT 05/30/2019 Flank pain 1:03 PM CDT EKG-12 LEAD Routine 05/30/2019 12:56 PM CDT NOTICE OF PRIVACY Routine 05/30/2019 PRACTICES 12:26 PM CDT CONSENT/REFUSAL FOR Routine 05/30/2019 DIAGNOSIS AND TREATMENT 12:25 PM CDT documented in this encounter Results * CBC WITH DIFFERENTIAL (05/30/2019 2:06 PM CDT) WBC 6.40 4.20 - 10.70 [place] 10*3/L [facility] RBC 4.23 (L) 4.26 - 5.52 10*6/L [facility] HGB 12.9 12.2 - 16.4 g/dL [facility] HCT 36.6 (L) 38.4 - 49.3 % [facility] MCV 86.5 81.7 - 95.6 fL [facility] MCH 30.5 26.1 - 32.7 pg [facility] MCHC 35.2 (H) 31.2 - 35.0 g/dL [facility] RDW-SD 42.5 38.5 - 51.6 fL [facility] RDW-CV 13.7 12.1 - 15.4 % [facility] PLT 254 150 - 328 10*3/L [facility] MPV 10.0 9.8 - 13.[address] [facility] NRBC/100 WBC 0.0 0.0 - 10.0 /100 WBCs [facility] NRBC x10^3 <0.01 10*3/L [facility] GRAN MAT (NEUT) 53.2 % [facility] IMM GRAN % 0.90 % [facility] LYMPH % 34.8 % [facility] MONO % 7.2 % [facility] EOS % 3.3 % [facility] BASO % 0.6 % [facility] GRAN MAT 3.40 1.99 - 6.95 10*3/uL [place] x10^3(ANC) [facility] IMM GRAN x10^3 0.06 0.00 - 0.06 10*3/uL [facility] LYMPH x10^3 2.23 1.09 - 3.23 10*3/uL [facility] MONO x10^3 0.46 0.36 - 1.02 10*3/uL [facility] EOS x10^3 0.21 0.06 - 0.53 10*3/uL [facility] BASO x10^3 0.04 0.01 - 0.09 10*3/uL [facility] Specimen Blood - VENOUS Performing Organization Address City/[facility] CLIA: [id number], [address] [place] [address] * LIPASE (05/30/2019 1:11 PM CDT) LIPASE 81 0 - 220 U/L [facility] Specimen Blood - VENOUS Performing Organization Address City/[facility] CLIA: [id number], [address] [place] [address] * TROPONIN I (05/30/2019 1:11 PM CDT) TROPONIN I 0.004 <=0.034 ng/mL [facility] Specimen Blood - VENOUS Narrative Performed At Equal or Less than 0.034 ng/ml---Normal [facility] Note: Cardiac troponin begins to rise 3-4 hours after the onset of ischemia. HOSPITAL LAB[facility]ORY Repeat in 4-6 hours if the sample was d rawn within 3-4 hours of the onset of the symptom and found normal. Between 0.035 and 0.120 ng/mL--- Border line. Questionable myocardial injury or necrosis Note: Serial measurement may be necessa ry to confirm or exclude the diagnosis of myocardial injury or necrosis; Clinical correlation (symptoms, EKGs, imaging studies, and others) required; Repeat i n 4-6 hours if clinically indicated. Equal or Higher than 0.121 ng/mL---Abno rmal. Myocardial Injury or Necrosis Likely Biotin has been reported to cause a neg ative bias, interpret results relative to patient's use of biotin. Performing Organization Address City/State/Zipcode Ph one Number [facility] CLIA: [id number], [address] [place] [address] * COMP. METABOLIC PANEL (95712) (05/30/2019 1:11 PM CDT) NA 139 135 - 145 mmol/L [facility] K 4.4 3.5 - 5.0 mmol/L [facility] CL 106 98 - 108 mmol/L [facility] CO2 TOTAL 25 23 - 31 mmol/L [facility] AGAP 8 2 - 16 [facility] BUN 15 7 - 23 mg/dL [facility] GLUCOSE 100 70 - 110 mg/dL [facility] CREATININE 0.89 0.60 - 1.25 mg/dL [facility] TOTAL BILI 0.2 0.1 - 1.1 mg/dL [facility] CALCIUM 8.8 8.6 - 10.6 mg/dL [facility] T PROTEIN 6.5 6.3 - 8.2 g/dL [facility] ALBUMIN 3.7 3.5 - 5.0 g/dL [facility] ALK PHOS 94 34 - 122 U/L [facility] ALT(SGPT) 28 9 - 51 U/L [facility] AST(SGOT) 43 (H) 13 - 40 U/L [facility] eGFR 96.2 mL/min/1.73m2 [place] Calculation [place] ([facility] H[facility]) LABORATORY eGFR 116.6 mL/min/1.73m2 [facility] ( [facility] Greek) LABORATORY Specimen Blood - VENOUS Narrative Performed At Association of Glomerular Filtration Rate (GFR) and S taging of Kidney Disease* [facility] + + +------ + HOSPITAL LABORATORY | GFR (mL/min/1.73 m2)| With Kidney Damage|Without Kidney Damage + + -------+ + |>90 |Stage one| Normal + + -------+ + |60-89 |Stage two| Decreased GFR + + -------+ + |30-59 |Stage three| Stage three + + -------+ + |15-29 |Stage four | Stage four + + -------+ + |<15 (or dialysis)|Stag e five | Stage five + + -------+ + *Each stage assumes the associated GFR level has been in effect for at least three months.Stages 1 to 5, with or without kidney disease, indicate chronic kidney disease. Notes: Determination of stages one and two (with eGFR >59mL/min/1.73 m2) requires estimation of kidney damage fo r at least three months as defined by structural or functional abnormalities of the kidney, manifested by either: Pathological abnormalities or Markers o f kidney damage (including abnormalities in the composition of the blood or urin e or abnormalities in imaging tests). Performing Organization Address [facility] one [facility] CLIA: [id number], [address] [place] [address] * ADC / [facility] - DRUG SCREEN TRIAGE (05/30/2019 1:03 PM CDT) BENZO U Presumptive Positive (A) Negative [facility] RHYS U Negative Negative [facility] AMPHET Presumptive Positive (A) Negative [facility] THC Negative Negative [facility] METHADONE Negative Negative [facility] Meth U Negative Negative [facility] OPIATES Presumptive Positive (A) Negative [facility] Cocaine Negative Negative [facility] PROPOXY Negative Negative [facility] Tric U Negative Negative [facility] PCP Negative Negative [facility] OXYCOD Negative Negative [facility] Specimen Urine - URINE, CLEAN CATCH Narrative Performed At Urine Drug Cutoff Ranges [facility] Benzodiazepines: 150 ng/mL HOSPITAL LAB[facility]ORY Barbiturates: 200 ng/mL Amphetamine: 500 ng/mL Cannabinoids: 50ng/mL Methadone: 200 ng/mL Methamphetamine: 500 ng/mL Opiates: 100 ng/mL or 2000 ng/mL Cocaine: 150 ng/mL Propoxyphene:300 ng/mL Tricyclics:300 ng/m L Oxycodone: 100 ng/m L PCP: 25 ng/mL The results are to be used only for med ical (i.e., treatment) purposes. Unconfirmed screening results must not be used for non-medical purposes (e.g., employment testing, legal testing). Performing Organization Address [facility] one [facility] CLIA: [id number], [address] [place] [address] * URINALYSIS (05/30/2019 1:03 PM CDT) APPEARANCE Clear Clear [facility] COLOR Yellow Yellow [facility] PH 6.0 4.8 - 8.0 [facility] SP GRAVITY 1.014 1.003 - 1.030 [facility] GLU U QUAL Normal Normal [facility] BLOOD Negative Negative [facility] KETONES Negative Negative [facility] PROTEIN Negative Negative [facility] UROBILIN Normal Normal [facility] BILIRUBIN Negative Negative [facility] NITRITE Negative Negative [facility] LEUK MYAH Negative Negative [facility] RBC/HPF 3 0 - 3 HPF [facility] WBC/HPF 2 0 - 5 HPF [facility] BACTERIA Negative Negative [facility] MUCOUS Slight (A) Negative LPF [facility] Specimen Urine - URINE, CLEAN CATCH Performing Organization Address City/State/[facility] CLIA: [id number], [address] [place] [id number] documented in this encounter Visit Diagnoses Diagnosis Bilateral nephrolithiasis - Primary Flank pain Abdominal pain, unspecified site LLQ pain Abdominal pain, left lower quadrant Epigastric pain Abdominal pain, epigastric documented in this encounter Administered Medications Action Date Dose Rate Site Medication Order MAR Action 05/30/2019 1:20 PM CDT 30 mg ketorolac (TORADOL) injection 30 mg Given 30 mg, Slow IV Push, ONCE, 1 dose, Elizabeth 05/30/19 at 1400, Routine, Faculty campos r approving Restricted medication: DAHLIA HIGH 05/30/2019 1:20 PM CDT 4 mg ondansetron (ZOFRAN (PF)) injection 4 mg Given 4 mg, Slow IV Push, ONCE, 1 dose, Elizabeth 05/30/19 at 1400, DUSTIN documented in this encounter
--- OUTSIDE RECORDS SUMMARY | 2020-02-19 22:54 | XMS REPORT | Continuity of Care Document ---
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 02:01:0028.5[facility] RbrhnwaMEDYBGBFUQ6769-26-10 02:01:007.6[facility] ChjbekhMQSCCRAYZL3430-21-60 02:01:002.8[facility] AjzjyybGKQSYBENMM6997-95-38 02:01:000.6[facility] Mairo WUJLHFDKXK6314-47-53 02:01:000.2[facility] WpwwdfhCFCKPWHYHF2746-63-19 02:01:002.1 [facility] XtafjzoOVXRBMVOJQ7977-26-13 02:01:000.1[facility] 2018-12-19 02:01:001.4[facility] YtifvuzUSOFNPBQKB4019-89-23 02:01:004.5[facility] VDXOO0438-25-97 03:35:002[facility] STOOL 2017-01-25 03:35:004[facility] WZFZT1416-35-16 03:35:00Negative (01/24/17 10:35 PM)[facility] ZQIBO1842-39-20 03:35:00Negative *NA*(01/24/17 10:35 PM)[facility] BYHJQ4568-25-67 03:35:00Light Yellow *NA*(01/24/17 10:35 PM)[facility] YAIXN1020-77-10 03:35:00 5.0[facility] JYYFD8356-26-99 03:35:00Clear (01/24/17 10:35 PM) [facility] EZYBL7340-44-50 03:35:001.020[facility] CKSNM6726-56-07 03:35:00Negative (01/24/17 10:35 PM)[facility] DFKHQ0521-42-92 03:35:00Negative (01/24/17 10:35 PM)[facility]annCARDIAC HHKNPQF1066-49-64 02:51:00<0.02[facility] GHVABJI3223-77-21 02:51:001.0[facility] MXBAB0489-40-07 02:51:001.2[facility] FYOXI9530-78-42 02:51:0012.6[facility] EXYGI5258-63-11 02:51:0019 [facility] YBWEK1894-69-94 02:51:003.0[facility] PANEL 2017-01-25 02:51:0094[facility] YHXQG8975-49-25 02:51:006.7[facility] SILCZ2208-76-70 02:51:008.8[facility] BMHUM7383-91-89 02:51:0023[facility] TVDJK8096-80-25 02:51:39949Fevnvidd HermannCHEM IFEKY2265-81-76 02:51:003.7[facility] ASAPH2307-92-62 02:51:21634 [facility] PWSAC9134-38-91 02:51:001.03[facility]annCHE[facility] PANEL 2017-01-25 02:51:0020[facility] WRGPU4824-11-64 02:51:65638Nqlehjfx HermannCHEM FJDIS6976-33-93 02:51:003.6[facility] EWKXA9775-86-86 02:51:0075[facility] BAHFT6287-40-27 02:51:0020[facility] JHOIL3269-11-74 02:51:0031[facility] HRPYB2134-07-98 02:51:000.1 [facility] WsrbcinWCUURFTBQM9319-79-26 02:51:002.0[facility]annHEMATOLOGY 2017-01-25 02:51:000.5[facility] FwgvrljPCYDDNAMDL5295-18-02 02:51:000.1[facility] OxsinjvYFYOOZQSGP3034-68-35 02:51:000.2[facility] WidnlcnCKVEQPUSDI7040-89-96 02:51:0030.9[facility] VovxscsOOKPSBACKL6132-12-63 02:51:007.6[facility] [place] CIELGDXCPT3240-94-16 02:51:000.8[facility] PagpwmrLXKPTVEMSF2906-78-23 02:51:003.7 [facility] XzobcdeUJIROBHFAM3739-82-26 02:51:003.8[facility]annHEMATOLOGY 2017-01-25 02:51:0056.9[facility] OdlvgvgDOCQDZCGGL1233-92-02 02:51:00* Test Item Value Reference Range Interpretation Comments PTT (test code = PTT) 33.1 s 22.9-35.8 [facility] OljzpqxWTMWIOKVZH8763-76-60 02:51:009.0[facility]OLOGY 2017-01-25 02:51:54805Bhvszinz BxisvpfAKZFGWRSGR1015-26-05 02:51:0014.3[facility] AvslneuWHPYJCUPUQ0068-98-86 02:51:006.4[facility] KzvwnwuIJMMYRUJDQ3576-58-83 02:51:0012.4[facility] YcafkivDIYSDKMTIY8718-22-42 02:51:004.18[facility] DWFHXNTGTS8869-58-84 02:51:00* Test Item Value Reference Range Interpretation Comments MCH (test code = MCH) 29.6 pg 27.0-31.0 [facility] PinyzwgYVOEKINGDL3213-20-92 02:51:0034.6[facility]annHEMATOLOGY 2017-01-25 02:51:0085.4[facility] OpmkprmEQDMACXSBD5442-20-96 02:51:0035.7[facility]
--- OUTSIDE RECORDS SUMMARY | 2020-02-19 22:54 | XMS REPORT | Summary of Care ---
Author Author [facility] Organization [facility] Address Unknown Phone Unavailable Encounter HANNAH Lott(FIN) [id number] Date(s): 12/18/18 - 12/18/18 [facility] [address] [place] [address]- Encounter Diagnosis Left ureteral stone (Discharge Diagnosis) - 12/18/18 Discharge Disposition: Home or Self Care Attending Physician: Lazara Macias MD Vital Signs 1 2 3 Most recent to oldest [Reference Range]: 180.34 cm (12/18/18 8:42 PM) Height 97.3 DegF (12/18/18 8:42 PM) Temperature Oral [96.4-99.1 DegF] 139/80 mmHg (12/18/18 11:08 PM) 159/71 mmHg *HI* (12/18/18 9:35 PM) 142/89 mmHg *HI* (12/18/18 9:05 PM) Blood Pressure [90-140/60-90 mmHg] 16 BRMIN (12/18/18 11:08 PM) 17 BRMIN (12/18/18 9:35 PM) 17 BRMIN (12/18/18 9:05 PM) Respiratory Rate [14-20 BRMIN] 71 bpm (12/18/18 11:08 PM) 82 bpm (12/18/18 9:35 PM) 83 bpm (12/18/18 9:05 PM) Peripheral Pulse Rate [60-100 bpm] 101.045 kg (12/18/18 8:42 PM) Weight 31.07 m2 (12/18/18 8:42 PM) Body Mass Index Problem List Condition Effective Dates Status Health Status Informan t Seizures(Confirmed) Active Allergies, Adverse Reactions, Alerts Substance Reaction Severity Status NKDA Active Medications Flomax 0.4 mg oral capsule 0.4 mg = 1 cap, PO, Daily, # 30 cap, 0 Refill(s) Start Date: 12/18/18 Status: Ordered ketOROLAC 30 mg, Route: IVP, Drug form: INJ, ONCE, Dosing Weight 101.045, kg, Priority: ST AT, Start date: 12/18/18 21:25:00 CDT, Stop date: 12/18/18 21:25:00 CDT Start Date: 12/18/18 Stop Date: 12/18/18 Status: Completed morphine Sulfate 4 mg, 1 mL, Route: IVP, Drug form: SOLN, ONCE, Dosing Weight 100, kg, Priority: STAT, Start date: 12/18/18 20:43:00 CDT, Stop date: 12/18/18 20:43:00 CDT Notes: (Same as:MORPhine Sulfate) Start Date: 12/18/18 Stop Date: 12/18/18 Status: Completed [place] 10/325 oral tablet 1 tab, Route: PO, Drug Form: TAB, Dosing Weight 101.045, kg, ONCE, STAT, Start d ate: 12/18/18 22:43:00 CDT, Stop date: 12/18/18 22:43:00 CDT Start Date: 12/18/18 Stop Date: 12/18/18 Status: Completed ondansetron 4 mg, 2 mL, Route: IVP, Drug form: INJ, ONCE, Dosing Weight 100, kg, Priority: S TAT, Start date: 12/18/18 20:43:00 CDT, Stop date: 12/18/18 20:43:00 CDT Notes: (Same as: Ewelina) MEDICATION WASTE Product Size: 4 mgProduct Was bernabe: ___ mg Start Date: 12/18/18 Stop Date: 12/18/18 Status: Completed Saline Flush 0.9% 10 mL, Route: IVP, Drug Form: INJ, Dosing Weight 100, kg, PRN, PRN Line Flush, S tart date: 12/18/18 20:43:00 CDT, Duration: 30 day, Stop date: 01/17/19 20:42:00 CDT Notes: (Same as: BD Posiflush) Start Date: 12/18/18 Stop Date: 12/19/18 Status: Discontinued Sodium Chloride 0.9% (Bolus) IV 1,000 mL, 1,000 ml/hr, Infuse Over: 1 hr, Route: IV, ONCE, Priority: Hugo CRENSHAW Weight 101.045 kg, Start date: 12/18/18 21:29:00 CDT, Stop date: 12/18/18 21:2 9:00 CDT Start Date: 12/18/18 Stop Date: 12/18/18 Status: Completed Tylenol with Codeine #3 oral tablet 1 tab, PO, Q6H, PRN Pain, X 10 day, # 30 tab, 0 Refill(s) Start Date: 12/18/18 Stop Date: 12/28/18 Status: Ordered Zofran ODT 4 mg oral tablet, disintegrating 4 mg = 1 tab, PO, Q8H, PRN Nausea and Vomiting, Dissolve tab under tongue, # 30 tab, 0 Refill(s) Start Date: 12/18/18 Stop Date: 12/28/18 Status: Ordered Results ELECTROLYTES Most recent to 1 oldest [Reference Range]: Sodium Lvl [135-145 134 mEq/L mEq/L] *LOW* (12/18/18 9:01 PM) Potassium Lvl 4.1 mEq/L [3.5-5.1 mEq/L] (12/18/18 9:01 PM) Chloride Lvl [95-109 103 mEq/L mEq/L] (12/18/18 9:01 PM) CO2 [24-32 mEq/L] 25 mEq/L (12/18/18 9:01 PM) AGAP [10.0-20.0 10.1 mEq/L mEq/L] (12/18/18 9:01 PM) CHEM PANEL Most recent to 1 oldest [Reference Range]: Creatinine Lvl 1.15 mg/dL [0.50-1.40 mg/dL] (12/18/18 9:01 PM) eGFR 81 mL/min/1.73m2 1 *NA* (12/18/18 9:01 PM) BUN [7-22 mg/dL] 17 mg/dL (12/18/18 9:01 PM) B/C Ratio [6-25] 15 (12/18/18 9:01 PM) Glucose Lvl [70-99 151 mg/dL mg/dL] *HI* (12/18/18 9: PM) Total Protein 6.9 g/dL [6.4-8.4 g/dL] (12/18/18: PM) Albumin Lvl [3.5-5.0 3.6 g/dL g/dL] (12/18/18: PM) Globulin [2.7-4.2 3.3 g/dL g/dL] (12/18/18 PM) A/G Ratio [0.7-1.6] 1.1 (12/18/18: PM) Calcium Lvl 8.8 mg/dL [8.5-10.5 mg/dL] (12/18/18 PM) ALT [0-65 unit/L] 56 unit/L (12/18/18 PM) AST [0-37 unit/L] 18 unit/L (12/18/18: PM) Alk Phos [39-136 112 unit/L unit/L] (12/18/18: PM) Bili Total [0.2-1.3 0.2 mg/dL mg/dL] (12/18/18: PM) Lipase Lvl [73-393 109 unit/L unit/L] (12/18/18: PM) 1Result Comment: The eGFR is calculated [...] Most recent to 1 oldest [Reference Range]: Troponin-I <0.02 ng/mL [0.00-0.40 ng/mL] (12/18/18 9:01 PM) URINE AND STOOL Most recent to 1 oldest [Reference Range]: UA Turbidity [Clear] Clear (12/18/18 10:07 PM) UA Color STRAW *NA* (12/18/18 10:07 PM) UA pH [5.0-8.0] 8.0 (12/18/18 10:07 PM) UA Spec Grav 1.011 [<=1.030] (12/18/18 10:07 PM) UA Glucose Negative [Negative] *NA* (12/18/18 10:07 PM) UA Blood [Negative] Negative (12/18/18 10:07 PM) UA Ketones Negative [Negative] *NA* (12/18/18 10:07 PM) UA Protein Negative [Negative] (12/18/18 10:07 PM) UA Urobilinogen <=1.0 mg/dL [0.1-1.0 mg/dL] *NA* (12/18/18 10:07 PM) UA Bili [Negative] Negative *NA* (12/18/18 10:07 PM) UA Leuk Est Negative [Negative] (12/18/18 10:07 PM) UA Nitrite Negative [Negative] (12/18/18 10:07 PM) UA WBC [0-5 /HPF] <1 /HPF (12/18/18 10:07 PM) UA RBC [0-2 /HPF] 1 /HPF (12/18/18 10:07 PM) UA Sq Epi [Few] None Seen (12/18/18 10:07 PM) UA Mucus [None Seen Few /LPF /LPF] *NA* (12/18/18 10:07 PM) HEMATOLOGY Most recent to 1 oldest [Reference Range]: WBC [3.7-10.4 K/CMM] 7.5 K/CMM (12/18/18 9:01 PM) RBC [4.70-6.10 4.63 M/CMM M/CMM] *LOW* (12/18/18 9:01 PM) Hgb [14.0-18.0 g/dL] 13.8 g/dL *LOW* (12/18/18 9:01 PM) Hct [42.0-54.0 %] 40.7 % *LOW* (12/18/18 9:01 PM) MCV [80.0-94.0 fL] 87.9 fL (12/18/18 9:01 PM) MCH [27.0-31.0 pg] 29.9 pg (12/18/18 9:01 PM) MCHC [32.0-36.0 34.0 g/dL g/dL] (12/18/18 9: PM) RDW [11.5-14.5 %] 14.2 % (12/18/18 9:01 PM) MPV [7.4-10.4 fL] 8.1 fL (12/18/18 9: PM) Platelet [133-450 287 K/CMM K/CMM] (12/18/18 9: PM) Segs [45.0-75.0 %] 59.7 % (12/18/18 9:01 PM) Lymphocytes 28.5 % [20.0-40.0 %] (12/18/18 9: PM) Monocytes [2.0-12.0 7.6 % %] (12/18/18 9:01 PM) Eosinophils [0.0-4.0 2.8 % %] (12/18/18 9:01 PM) Basophils [0.0-1.0 1.4 % %] *HI* (12/18/18 9:01 PM) Neutrophils # 4.5 K/CMM [1.5-8.1 K/CMM] (12/18/18 9:01 PM) Lymphocytes # 2.1 K/CMM [1.0-5.5 K/CMM] (12/18/18 9:01 PM) Monocytes # [0.0-0.8 0.6 K/CMM K/CMM] (12/18/18 9:01 PM) Eosinophils # 0.2 K/CMM [0.0-0.5 K/CMM] (12/18/18 9:01 PM) Basophils # [0.0-0.2 0.1 K/CMM K/CMM] (12/18/18 9:01 PM) Immunizations Given and Recorded Vaccine Date [...]
--- NOTE | 2020-02-19 23:35 | Emergency Department Note ---
History of Present Illnes History of Present Illness Chief Complaint: Back Pain History of Present Illness This is a 39 year old male with abrupt onset of L flank pain. Denies f//n/v/c . Onset (how long ago): day(s) Radiation: Reports back Severity: moderate Duration (how long): day(s) (1) Timing of current episode: constant Progression: worsening Chronicity: recurrent Context: Denies recent illness, Denies recent surgery, Denies recent immobilization, Denies recent travel, Denies trauma/injury, Denies new me dications, Denies hx of DVT/PE, Denies non-compliance w/ medications, Denies other Relieving factors: none, rest Exacerbating factors: none, movement Associated symptoms: Reports denies other symptoms Treatments prior to arrival: none Previous service: one or more referrals Past Medical/Family History Physician Review I have reviewed the patient's past medical and family history. Any updates have been documented here. Past Medical History Recent Fever: No Clinical Suspicion of Infectio: No New/Unexplained Change in Ment: No Social History Smoking Cessation: Current some day smoker Counseling Performed: Yes Alcohol Use: None Any Illegal Drug Use: No Review of Systems Review of Systems Constitutional: Reports no symptoms EENTM: Reports no symptoms Cardiovascular: Reports no symptoms Respiratory: Reports no symptoms Gastrointestinal: Reports no symptoms Genitourinary: Reports pain (left flank pain) Musculoskeletal: Reports no symptoms Integumentary: Reports no symptoms Neurological: Reports no symptoms Psychological: Reports no symptoms Endocrine: Reports no symptoms Hematological/Lymphatic: Reports no symptoms Review of other systems All other systems reviewed and negative. Physical Exam Related Data Allergies: Coded Allergies: No Known Allergies (Unverified , 02/19/20) Triage Vital Signs Vital Signs Date Time Temp Pulse Resp B/P (MAP) Pulse Ox O2 Delivery O2 Flow Rate FiO2 02/19/20 23:25 98.2 82 18 143/93 99 Vital signs reviewed: Yes Physical Exam CONSTITUTIONAL Constitutional: Reports well-developed, Reports well-nourished HENT HENT: Reports normocephalic, Reports atraumatic, Reports oropharynx clear/moist, Reports nose normal HENT L/R: Reports left ext ear normal, Reports right ext ear normal EYES Eyes: Reports PERRL, Reports conjunctivae normal NECK Neck: Reports ROM normal PULMONARY Pulmonary: Reports effort normal, Reports breath sounds normal CARDIOVASCULAR Cardiovascular: Reports regular rhythm, Reports heart sounds normal, Reports capillary refill normal, Reports normal rate GASTROINTESTINAL Abdominal: Reports left CVA tenderness GENITOURINARY Genitourinary: Reports exam deferred SKIN Skin: Reports warm, Reports dry MUSCULOSKELETAL Musculoskeletal: Reports ROM normal NEUROLOGICAL Neurological: Reports alert, Reports oriented x 3, Reports no gross motor or sensory deficits PSYCHOLOGICAL Psychological: Reports mood/affect normal, Reports judgement normal Results Laboratory Laboratory Laboratory Tests Test 02/19/20 23:33 Urine Color Yellow (YELLOW) Urine Clarity Clear (CLEAR) Urine pH 6 (5 - 7) Urine Specific [employer] >=1.030 (1.010-1.025) Urine Protein Negative (NEGATIVE) Urine Glucose (UA) Negative (NEGATIVE) Urine Ketones Negative (NEGATIVE) Urine Blood Negative (NEGATIVE) Urine Nitrite Negative (NEGATIVE) Urine Bilirubin Negative (NEGATIVE) Urine Urobilinogen 0.2 mg/dL (0.2 - 1) Urine Leukocyte Esterase Negative (NEGATIVE) Urine RBC 0-5 /HPF (0-5) Urine WBC 0-5 /HPF (0-5) Urine Epithelial Cells Few /LPF (NONE) Urine Bacteria Few /HPF (NONE) Lab results reviewed: Yes Imaging Imaging results reviewed: Yes Impressions [place] [address] Patient Name: SAUL FREGOSO MR #: [id number] : 1980 Age/Sex: 39/M Req #: [id number] Adm Physician: Ordered by: RASHIDA CRANE DO Report #: [id number] Location: ER Room/Bed: Procedure: [id number] CT/CT ABDOMEN/PELVIS WO Exam Date: Exam Time: REPORT STATUS: Signed EXAM: CT Abdomen and Pelvis WITHOUT contrast INDICATION: ^L flank pain COMPARISON: None. TECHNIQUE: Abdomen and pelvis were scanned utilizing a multidetector helical scanner from the lung base to the pubic symphysis without administration of IV contrast. Absence of intravenous contrast decreases sensitivity for detection of focal lesions and vascular pathology. Coronal and sagittal reformations were obtained. Routine protocol was performed. IV CONTRAST: None ORAL CONTRAST: None. COMPLICATIONS: None RADIATION DOSE: Total DLP: 687 mGy*cm Estimated effective dose: (DLP x 0.015 x size factor) mSv CTDIvol has been reviewed. It is below the limits set by the Radiation Protocol Committee (RPC). FINDINGS: LINES and TUBES: None. LOWER THORAX: Unremarkable HEPATOBILIARY: Unenhanced liver is unremarkable. No biliary ductal dilation. GALLBLADDER: Contracted, limiting evaluation. No wall thickening. SPLEEN: No splenomegaly. PANCREAS: No focal masses or ductal dilatation. ADRENALS: No adrenal nodules KIDNEYS/URETERS: No hydronephrosis. Limited for evaluation of renal parenchyma without intravenous contrast. 4 mm right renal inferior pole calculus. Multiple punctate left renal calculi, the largest in the inferior pole measuring 4 mm. GI TRACT: No abnormal distention, wall thickening, or evidence of bowel obstruction. Appendix is normal. PELVIC ORGANS/BLADDER: Unremarkable. LYMPH NODES: No lymphadenopathy. VESSELS: Unremarkable. PERITONEUM / RETROPERITONEUM: No free air or fluid. BONES: Well-defined T11 vertebral body sclerotic focus, likely a bone island. SOFT TISSUES: Unremarkable. IMPRESSION: Bilateral subcentimeter nonobstructive renal calculi. No evidence of obstructive urolithiasis. Signed by: Dr. Aki Barboza MD on 02/20/2020 12:25 AM Dictated By: AKI BARBOZA MD Transcribed By: DYLAN on 02/20/2024 COPY TO: RASHIDA CRANE DO~ Assessment & Plan Medical Decision Making MDM abrupt flank pain. CTS and UA reviewed with patient to r/u kidney stone or other pathology such as diverticulitis, pancreatitis. Plan to discharge to home Assessment & Plan Final Impression: (1) Flank pain Depart Disposition: HOME, SELF-CARE RASHIDA CRANE DO Feb 19, 2020 23:35
[2020-02-19] MEDS ORDERED: KETOROLAC TROMETHAMINE 60 MG/2 ML VIAL IM ONE (23:45)
--- NOTE | 2020-02-20 00:28 | Diagnostic Imaging Report ---
EXAM: CT Abdomen and Pelvis WITHOUT contrast INDICATION: ^L flank pain COMPARISON: None. TECHNIQUE: Abdomen and pelvis were scanned utilizing a multidetector helical scanner from the lung base to the pubic symphysis without administration of IV contrast. Absence of intravenous contrast decreases sensitivity for detection of focal lesions and vascular pathology. Coronal and sagittal reformations were obtained. Routine protocol was performed. IV CONTRAST: None ORAL CONTRAST: None. COMPLICATIONS: None RADIATION DOSE: Total DLP: 687 mGy*cm Estimated effective dose: (DLP x 0.015 x size factor) mSv CTDIvol has been reviewed. It is below the limits set by the Radiation Protocol Committee (RPC). FINDINGS: LINES and TUBES: None. LOWER THORAX: Unremarkable HEPATOBILIARY: Unenhanced liver is unremarkable. No biliary ductal dilation. GALLBLADDER: Contracted, limiting evaluation. No wall thickening. SPLEEN: No splenomegaly. PANCREAS: No focal masses or ductal dilatation. ADRENALS: No adrenal nodules KIDNEYS/URETERS: No hydronephrosis. Limited for evaluation of renal parenchyma without intravenous contrast. 4 mm right renal inferior pole calculus. Multiple punctate left renal calculi, the largest in the inferior pole measuring 4 mm. GI TRACT: No abnormal distention, wall thickening, or evidence of bowel obstruction. Appendix is normal. PELVIC ORGANS/BLADDER: Unremarkable. LYMPH NODES: No lymphadenopathy. VESSELS: Unremarkable. PERITONEUM / RETROPERITONEUM: No free air or fluid. BONES: Well-defined T11 vertebral body sclerotic focus, likely a bone island. SOFT TISSUES: Unremarkable. IMPRESSION: Bilateral subcentimeter nonobstructive renal calculi. No evidence of obstructive urolithiasis. Signed by: Dr. Aki Barboza MD on 02/20/2020 12:25 AM
[2020-02-20 00:54] LABS: CLARITY,URINE CLEAR (CLEAR); COLOR,URINE YELLOW (YELLOW)
[2020-02-20 00:55] LABS: BACTERIA,URINE FEW /HPF; BILIRUBIN,URINE NEGATIVE (NEGATIVE); EPITHELIAL CELLS,URINE FEW /LPF; KETONES,URINE NEGATIVE (NEGATIVE); LEUKOCYTE ESTERASE ,URINE NEGATIVE (NEGATIVE); NITRITE,URINE NEGATIVE (NEGATIVE); PROTEIN,URINE DIPSTICK NEGATIVE (NEGATIVE); RBC,URINE 0-5 /HPF (0-5); URINE UROBILINOGEN 0.2 mg/dL (0.2 - 1); WBC,URINE (MAN) 0-5 /HPF (0-5)
== END 2020-02-20 01:20 | disposition home or self-care (01) ==
LOC: ER 22:51
DX: M54.5 Low back pain (principal); N20.0 Calculus of kidney; R04.0 Epistaxis; F17.210 Nicotine dependence, cigarettes, uncomplicated
CPT/HCPCS: 74176; 99283; J1885; 81001